=== PATIENT | female | born 1995 ===

== ENCOUNTER 2017-07-10 11:42 | Inpatient (IN) | payer OTHER ==
[2017-07-10] MEDS ORDERED: EPSOM SALT 454 GM TP PRN (12:04)
[2017-07-10] MEDS ORDERED: OLIVE OIL 118 ML BTL MISC PRN (12:04)
[2017-07-10] MEDS ORDERED: OXYTOCIN 20 UNIT in LR 1,000 ML IV PRN (12:04)
[2017-07-10] MEDS ORDERED: TERBUTALINE SULFATE 1 MG/ML VIAL IV PRN (12:04)
[2017-07-10] MEDS ORDERED: MISOPROSTOL 200 MCG TAB PR PRN (12:04)
[2017-07-10] MEDS ORDERED: CALCIUM GLUC 10% 1 GM/10 ML VIAL IVP PRN (12:07)
[2017-07-10] MEDS ORDERED: MAGNESIUM SULF 2 GM/WATER 50 ML IV PRN (12:11)
[2017-07-10] MEDS ORDERED: MAGNESIUM SULF 2 GM/WATER 50 ML IV ONE (12:11)
[2017-07-10] MEDS ORDERED: MAGNESIUM SULF 2 GM/WATER 50 ML BAG IV ONE (12:16)
[2017-07-10] MEDS ORDERED: CALCIUM GLUC 10% 1 GM/10 ML VIAL ONE (12:28)
[2017-07-10] MEDS ORDERED: MAGNESIUM SULFATE 20 GM in D5W 500 ML IV SCH (12:30)
[2017-07-10 13:08] LABS: PLATELET COUNT 324 10^3/uL (150-400)
[2017-07-10] MEDS: LR 1,000 ML IV PRN (13:12)
[2017-07-10] MEDS ORDERED: BETAMETHASONE IM SYRINGE IM ONE (14:23)
[2017-07-10 16:06] LABS: HEPATITIS B SURFACE ANTIGEN NEGATIVE (NEGATIVE)
[2017-07-10 16:15] LABS: HIV TYPE 1 AND 2 NEGATIVE (NEGATIVE)
[2017-07-10 17:57] LABS: PLATELET COUNT 279 10^3/uL (150-400)
[2017-07-10] MEDS ORDERED: LIDOCAINE 1% 300 MG/30 ML SDV ONE (19:29)
[2017-07-10] MEDS ORDERED: TERBUTALINE SULFATE 1 MG/ML VIAL ONE (19:29)
[2017-07-10] MEDS ORDERED: AMMONIA AROMATIC 1 EACH AMP IH ONE (19:29)
[2017-07-10] MEDS ORDERED: OLIVE OIL 118 ML BTL ONE (19:29)
[2017-07-10] MEDS ORDERED: MISOPROSTOL 200 MCG TAB ONE (19:30)
[2017-07-10] MEDS ORDERED: OXYTOCIN 10 UNIT/ML VIAL ONE (19:30)
[2017-07-10] MEDS ORDERED: LR 500 ML IV PRN (21:58)
[2017-07-10] MEDS ORDERED: OXYTOCIN 30 UNIT in NS 500 ML IV SCH (22:00)
[2017-07-10] MEDS ORDERED: ZOLPIDEM TARTRATE 5 MG TAB PO PRN (22:37)
[2017-07-10 22:43] LABS: PLATELET COUNT 307 10^3/uL (150-400)
[2017-07-11] MEDS: NS IV SCH ×2 (00:04→10:30)
[2017-07-11] MEDS: MAGNESIUM SULFATE IV SCH ×2 (00:04→10:30)
[2017-07-11] MEDS ORDERED: ACETAMINOPHEN 500 MG TAB PO PRN (00:21)
[2017-07-11 06:40] LABS: PLATELET COUNT 301 10^3/uL (150-400)
[2017-07-11] MEDS ORDERED: AMPICILLIN SODIUM 2 GM in STERILE WATER INJ 25 ML IV ONE (07:53)
[2017-07-11] MEDS ORDERED: BETAMETHASONE IM SYRINGE IM ONE (07:58)
[2017-07-11] MEDS: LR 1,000 ML IV PRN (08:04)
--- NOTE | 2017-07-11 08:41 | GHP ---
[f rep st] PREOP HISTORY AND PHYSICAL DATE OF ADMISSION: 07/10/2017 This admission history and physical is dictated late. The patient was seen and evaluated on 07/11/19 18 and extensive management throughout the day. HISTORY UPON ADMISSION: The patient is a 21-year-old G1, P0, who was brought by ambulance to Labor a nd Delivery as a walk-in patient with concern for severe hypertension with no care and unkno wn gestational age. The patient is a pleasant, lucid white female who reports she was not aware of t he until last week. The patient reports that she was having some visual changes and weight gain and went to an urgent care center in May and told her test was negative. Patient then re-presented to a general practitioner at [place] on 07/01 complaining of visual changes, swelli ng, and weight gain. At that time, she was told she had a positive test. She was told austen t likely she was between 20 and 22 weeks, and the patient expressed that she did not want to continue the , and she was referred to [facility]. On both of the prior office visits, the patient was asked if she was nervous because her blood pressure was slightly elevated. The dorcas ent did mention she knew her blood type was negative, and she was given a RhoGAM shot on 07/05 at [facility]. On 07/10, the patient presented to the [facility] and was told there that she was very h ypertensive, and it was dangerous to her health, and she was going to be sent to the hospital by ruthie sanz. Clinic notes from that presentation show blood pressure 177/122. Quick ultrasound was perfor med, and the patient was told she was at term gestation. Report from the ambulance personnel was austen t the patient was very hypertensive coming to the hospital. Blood pressure 190/140 and pulse ox of 8 6%. The patient was given IV magnesium sulfate on the transport. The intent was to take the patient to [facility]; however, she was not felt to be stable enough and was brought to [facility]. The patient reports that since the awareness of last week, she has noticed mov ement. Denies leakage of fluid or bleeding. Denies feeling anything like contractions. PAST MEDICAL HISTORY: The patient reports an ulcer that was treated with antibiotics during a high s tress time several years ago. Does not have regular GI discomfort or take antacids. The patient den ies any other medical problems. Denies asthma or any heart trouble. No migraine headaches or histor y of hypertension. PAST SURGICAL HISTORY: Negative. PAST OBSTETRIC HISTORY: Negative. 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 Patient denies any history of gonorrhea or chlamydia. ALLERGIES: The patient has no known drug allergies. CURRENT MEDICATIONS: None. SOCIAL HISTORY: The patient denies any illicit drug use. Patient has never been a smoker. Denies a ny pot use. 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 Patient reports her family is unaware of this h ospital visit and the . Patient reports last week she informed the father of the child, who is in [place], of the . They are currently no longer together. However, he gave her sup port that he would support any decision she made about the . The patient moved approximatel y a year and half ago from [place], and with her job was in [place] for approximately the last 6 weeks and just returned 2 weeks ago. DIAGNOSTIC DATA: Laboratory tests done upon admission confirm the blood type of O negative with a po sitive antibody screen, felt to be due to the RhoGAM given on 07/05. Initial laboratory tests reveal white count of 6.8, hemoglobin 13, hematocrit 39, platelets 324,000. Initial PIH labs reveal BUN of 12, creatinine 1.0, uric acid of 7.5, AST 30, ALT 37, LDH 665. labs were performed and RPR nonreactive. Hepatitis B surface antigen was negative. HIV negative. Rubella is nonimmune. An ultrasound was performed, which reveals a westfall in the vertex presentation. There i s adequate amniotic fluid. Placental location is fundal. Symmetric sizes with an average ultrasound age of 36 weeks and 6 days with a femur length of 38 weeks and 6 days. Estimated weight 2933 g. Mu ltiple areas of the anatomy were suboptimal due to position. Cardiac evaluation appears normal. REVIEW OF SYSTEMS: Patient reports generalized visual changes and reports blurriness when in differe nt light situations. Has reported swelling for the last 2 weeks and generalized weight gain. Patien t denies headaches. Denies any epigastric or right upper quadrant pain. Denies any nausea or vomiti ng. Denies any chest pain. Denies any vaginal discharge or bleeding. No trouble with urination. ADMISSION PHYSICAL EXAM: GENERAL: The patient is a well-developed, well-nourished white female, in no physical signs of distress upon admission. The patient is alert and oriented. VITAL SIGNS: Init ially revealed a blood pressure of 147/102 with a heart rate 88. Pulse ox evaluations were in the 90 s on 2-3 L of O2 upon admission. This was reduced to 1 L of O2, and pulse ox remained stable in the 90s. Blood pressures continued on close evaluation to be in the 130s to 160s over 90s to 100s. See nursing documentation for full details. LUNGS: Clear to auscultation bilaterally. CARDIOVASCULAR: Regular rate and rhythm. ABDOMEN: Gravid uterus. monitoring revealed a category 1 tracing w ith the baseline in the 120s with good variability and accelerations. No sign of decelerations. Con traction pattern only revealed very infrequent mild contractions. EXTREMITIES: Revealed 3+ pitting edema up to the knees. However, this decreased as the patient was at bed rest. Reflexes were hyperr eflexive. PELVIS: Exam was done later in the day, and the cervix was 1 cm dilated, 70% effaced, at 0 station. For cervical ripening with the thought of proceeding with induction, a García catheter was placed. The cervix was wiped clean with Betadine, and the García catheter was inserted to the cervix without any problems. It was filled with 30 mL of sterile water. The patient tolerated the placeme nt without any trouble. ASSESSMENT: 21-year-old with no care with an intrauterine at 36 weeks and 6 days by late dating criteria of ultrasound today. Undesired , and the patient is unsure but lean ing towards giving the baby up for adoption. Signs of severe -induced hypertension with hyp erreflexia. Blood pressures in stable range on magnesium sulfate. The patient had received a gram o f magnesium en route in the ambulance and was given an additional 2 g bolus upon admission. She is t hen continued on a 2 g/hour infusion of magnesium sulfate. Serial labs throughout the day on 07/10 reveal stability of platelet levels and normal liver function s. Creatinine is showing slow elevation up to 1.1. Continued high uric acid throughout the day. Ad equate urine output, greater than 70 cc an hour with spontaneous voiding at the bedside commode. Due to unsure gestation with late dating criteria, it was decided to give the patient a betamethasone do se and will repeat in 24 hours if undelivered. Also, due to unknown GBS status, the patient will rec eive antibiotics when in labor. Situation was discussed with the patient, and she understands that due to the hypertension, it is rec ommended to proceed with delivery. The García catheter was inserted for cervical ripening, and the pl an will be Pitocin to start on the morning of 07/11. Maternal blood type O negative, and RhoGAM was given after a negative antibody screen was obtained on 07/05. PLAN: Continue magnesium sulfate and fluid restriction and repeat labs at [address] arted at 6 a.m. as well as antibiotics for GBS prophylaxis. /[id number]/MODL
[2017-07-11] MEDS ORDERED: PHENYLEPHRINE HCL 100 MCG/ML SYR ONE (14:15)
[2017-07-11] MEDS ORDERED: BUPIVACAINE 0.25% 30 ML SDV ONE (14:15)
[2017-07-11] MEDS ORDERED: fentaNYL 100 MCG/2 ML INJ ONE (14:17)
[2017-07-11] MEDS ORDERED: LR 500 ML IV SCH (15:30)
[2017-07-11] MEDS ORDERED: PHENYLEPHRINE HCL 100 MCG/ML SYR IVP PRN (15:30)
[2017-07-11] MEDS ORDERED: ONDANSETRON 4 MG/2 ML VIAL IVP PRN (15:30)
[2017-07-11] MEDS ORDERED: fentaNYL 2MCG/ML/BUP 0.1% RTU 100 ML EP SCH (15:30)
--- NOTE | 2017-07-11 15:40 | OBPROG ---
Labor Progress Note Assessment/Plan: Assessment: [id number] with IUP@37-0 (by 36wk US) Pre Eclampsia no PNC IOL BUFA Plan: cont magnesium sulfate cont pitocin AROM at next exam reassess 2hr/PRN repeat mag levels @ 12 Cont strict I&O Subjective/Intrapartum Course: 07/11/17 0820: pt doing well, she denies any pain. She is laying in bed. States she is feeling tired, more than yesterday, but overall ok. She denies any CUMMINS, visual changes, epigastric pain. She denies any CP, SOB. Objective: 07/11/17 06:00 07/11/17 13:59 Patient ABO/Rh O NEGATIVE 07/10/17 11:57 Uric Acid 8.2 mg/dL (2.5-6.8) H 07/11/17 12:36 Total Bilirubin 0.2 mg/dL (0.1-1.4) 07/11/17 06:00 Conjugated Bilirubin 0.1 mg/dL (0.0-0.5) 07/11/17 06:00 Unconjugated Bilirubin 0.1 mg/dL (0.0-1.1) 07/11/17 06:00 AST 27 IU/L (14-46) 07/11/17 06:00 ALT 31 IU/L (9-52) 07/11/17 06:00 Lactate Dehydrogenase 481 IU/L (313-618) 07/11/17 06:00 García bulb out - SVE Dilation (cm): 4 Effacement (%): 0 Station: -3 - Contraction Pattern Assessment Current Contraction Pattern: Irregular - FHR Assessment López FHR (bpm): 115 FHR Pattern Variability: Minimal FHR Category: 1 - Physical Exam General Appearance: WD/WN, alert, no apparent distress Respiratory: chest non-tender, lungs clear, normal breath sounds Cardiac/Chest: regular rate, rhythm Abdomen: non-tender, soft DTR- Lower Extremities: Knee (R): 1+, Knee (L): 1+ Skin: normal color, warm/dry Neuro/Psych: no motor/sensory deficits, alert, normal mood/affect, oriented x 3 Oxytocin Orders Assessment - Pre-Induction/Augmentation Assessment Gestational Age: 36 week(s) and 6 day(s) ICD10 Worksheet Patient Problems: Problems Problem Status Onset Limited care in third trimester Acute Pre-eclampsia Acute with adoption planned Acute - ICD10 Problem Qualifiers (1) Pre-eclampsia Qualifiers: Trimester: third trimester Qualified Code(s): O14.93 - Unspecified pre- eclampsia, third trimester (2) Limited care in third trimester (3) with adoption planned Qualifiers: Trimester: third trimester Qualified Code(s): Z34.93 - Encounter for supervision of normal , unspecified, third trimester
[2017-07-11] MEDS ORDERED: fentaNYL 200 MCG, BUPIVACAINE 0.5% 20 ML in NS 100 ML EP SCH (16:00)
--- NOTE | 2017-07-11 17:54 | PREANESOB ---
Obstetric Pre-Anesthesia Info - General Info Proposed Procedure: Labor and delivery with pitocin. : 1 Para: 0 HUMBERTO: 08/01/17 Gestational Age: 36 week(s) and 6 day(s) - Info Status: Full Term Monitors: External FHR Baseline (bpm): 115 FHR Pattern: Reassuring - Labor Status Cervical Dilation per last OB SVE: 4 Pitocin: In Use Magnesium Sulfate in Use: Yes Indications for Labor Analgesia: Induction of Labor, Pain Control Labor Epidural: Proposed (Preeclampsia.) Anesthesia Allergies/Adverse Reactions: Allergy/AdvReac Type Severity Reaction Status Date / Time No Known Allergies Allergy Unverified 07/10/17 12:03 Home Medications: Medication Instructions Recorded NK [No Known Home Meds] 07/10/17 Visit Medications: Generic Name Dose Route Start Last Admin Trade Name Freq PRN Reason Stop Dose Admin Acetaminophen 1,000 mg 07/11/17 00:21 07/11/17 00:25 Tylenol PO 01/07/18 00:20 1,000 mg Q6 PRN Administration Pain, Mild/Fever, Can Take PO Calcium Gluconate 1 gm 07/10/17 12:07 Calcium Gluconate IVP 01/06/18 12:06 PRN PRN Magnesium Toxicity Diphenhydramine HCl 25 - 50 mg 07/11/17 15:30 Benadryl Injection IVP 01/07/18 15:29 Q6HRS PRN Itching Oxytocin 20 unit/ Lactated 1,002 mls @ 150 mls/hr 07/10/17 12:04 Ringer's IV PRN PRN Post- bleeding Magnesium Sulfate 50 mls @ 50 mls/hr 07/10/17 12:11 Magnesium Sulf 2 Gm (Premix) IV 01/06/18 12:10 CONT PRN SBP Greater Than 160 Lactated Ringer's 500 mls @ 500 mls/hr 07/10/17 21:58 Lr IV 07/11/17 21:58 PRN PRN Maternal Hypotension Oxytocin 30 unit/ Sodium 503 mls @ 0 mls/hr 07/10/17 22:00 07/11/17 06:02 Chloride IV 01/06/18 21:59 503 mls CONT EDVIN Administration Protocol Per Protocol Magnesium Sulfate 20 gm/ 540 mls @ 50 mls/hr 07/10/17 23:00 07/11/17 10:30 Sodium Chloride IV 01/06/18 22:59 540 mls CONT EDVIN Administration Ampicillin Sodium 1 gm/ 15 mls @ 60 mls/hr 07/11/17 08:15 Sterile Water IV 08/10/17 08:14 Q4H [facility] Protocol Lactated Ringer's 500 mls @ 0 mls/hr 07/11/17 15:30 Lr IV 01/07/18 15:29 CONT EDVIN As Directed Fentanyl 200 mcg/ Bupivacaine 100 mls @ 0 mls/hr 07/11/17 16:00 HCl 20 ml/ Sodium Chloride EP 07/21/17 15:59 CONT [facility] Protocol As Directed Ibuprofen 600 mg 07/10/17 12:04 Motrin PO 01/06/18 12:03 Q6HRS PRN post , inflammation Magnesium Sulfate 454 gm 07/10/17 12:04 Epsom Salt TP 01/06/18 12:03 Q1H PRN perineal discomfort Misoprostol 800 - 1,000 mcg 07/10/17 12:04 Cytotec OR ONCE PRN Vaginal Atony/Bleeding Ilion Oil 118 ml 07/10/17 12:04 Sweet Oil MISC 01/06/18 12:03 ONCE PRN perineal massage Ondansetron HCl 4 mg 07/11/17 15:30 Zofran IVP 07/12/17 15:29 Q4HRS PRN Nausea/Vomiting, Can't Take PO Phenylephrine HCl 100 mcg 07/11/17 15:30 Neosynephrine IVP 01/07/18 15:29 .Q2M PRN Hypotension Terbutaline Sulfate 0.25 mg 07/10/17 12:04 Brethine IV 01/06/18 12:03 ONCE PRN Tachysystole Zolpidem Tartrate 5 mg 07/10/17 22:37 07/11/17 00:03 Ambien PO 01/06/18 22:36 5 mg HS PRN Administration Sleep/Insomnia Discontinued Medications Generic Name Dose Route Start Last Admin Trade Name Freq PRN Reason Stop Dose Admin Ammonia (Aromatic Spirit) Confirm 07/10/17 19:29 Ammonia Aromatic Administered 07/10/17 19:30 Dose 1 each IH .STK-MED ONE Betamethasone Acet/Betameth SodPhos 12 mg 07/10/17 14:23 07/10/17 15:36 Celestone Im Syringe IM 07/10/17 14:24 12 mg ONCE ONE Administration Betamethasone Acet/Betameth SodPhos 12 mg 07/11/17 07:58 07/11/17 08:25 Celestone Im Syringe IM 07/11/17 07:59 12 mg ONCE ONE Administration Bupivacaine HCl Confirm 07/11/17 14:15 Sensorcaine 0.25% Sdv Administered 07/11/17 14:16 Dose 30 ml .ROUTE .STK-MED ONE Calcium Gluconate Confirm 07/10/17 12:28 Calcium Gluconate Administered 07/10/17 12:29 Dose 1 gm .ROUTE .STK-MED ONE Fentanyl Confirm 07/11/17 14:17 Sublimaze Administered 07/11/17 14:18 Dose 100 mcg .ROUTE .STK-MED ONE Lactated Ringer's 1,000 mls @ 0 mls/hr 07/10/17 12:04 07/11/17 08:04 Lr IV 07/11/17 12:03 1,000 mls PRN PRN Administration SEE PROTOCOL CONDITIONS Protocol Per Protocol Magnesium Sulfate 20 gm/ 540 mls @ 50 mls/hr 07/10/17 12:30 07/10/17 13:13 Dextrose IV 01/06/18 12:29 540 mls CONT EDVIN Administration Magnesium Sulfate 50 mls @ 50 mls/hr 07/10/17 12:11 07/10/17 13:13 Magnesium Sulf 2 Gm (Premix) IV 07/10/17 13:10 50 mls ONCE ONE Administration Ampicillin Sodium 2 gm/ 25 mls @ 100 mls/hr 07/11/17 07:53 07/11/17 14:29 Sterile Water IV 07/11/17 08:07 25 mls ONCE ONE Administration Protocol Lidocaine HCl Confirm 07/10/17 19:29 Lidocaine Hcl 1% Administered 07/10/17 19:30 Dose 300 mg .ROUTE .STK-MED ONE Magnesium Sulfate Confirm 07/10/17 12:16 Magnesium Sulf 2 Gm (Premix) Administered 07/10/17 12:17 Dose 2 gm IV .STK-MED ONE Misoprostol Confirm 07/10/17 19:30 Cytotec Administered 07/10/17 19:31 Dose 1,000 mcg .ROUTE .STK-MED ONE Ilion Oil Confirm 07/10/17 19:29 Sweet Oil Administered 07/10/17 19:30 Dose 118 ml .ROUTE .STK-MED ONE Oxytocin Confirm 07/10/17 19:30 Pitocin Administered 07/10/17 19:31 Dose 40 unit .ROUTE .STK-MED ONE Phenylephrine HCl Confirm 07/11/17 14:15 Neosynephrine Administered 07/11/17 14:16 Dose 1,000 mcg .ROUTE .STK-MED ONE Terbutaline Sulfate Confirm 07/10/17 19:29 Brethine Administered 07/10/17 19:30 Dose 1 mg .ROUTE .STK-MED ONE - Anesthesia History Response to Local Anesthetics: Normal Anesthesia & Operative History: No Prior Problems Family Anesthesia History: Negative - Social History Substance Use/Abuse: Denies - Vital Signs Blood Pressure: 126/77 Heart Rate: 83 Respiratory Rate: 16 Height/Weight (Nursing): Height 175.26 cm Weight 72.575 kg - Focused Exam Neck exam: FROM Mallampati Score: Class 1 Mouth exam: normal dental/mouth exam Pulmonary: no respiratory distress Cardiovascular: regular rate and rhythym Labs: 07/11/17 06:00 07/11/17 13:59 Patient ABO/Rh O NEGATIVE 07/10/17 11:57 Uric Acid 8.2 mg/dL (2.5-6.8) H 07/11/17 12:36 Total Bilirubin 0.2 mg/dL (0.1-1.4) 07/11/17 06:00 Conjugated Bilirubin 0.1 mg/dL (0.0-0.5) 07/11/17 06:00 Unconjugated Bilirubin 0.1 mg/dL (0.0-1.1) 07/11/17 06:00 AST 27 IU/L (14-46) 07/11/17 06:00 ALT 31 IU/L (9-52) 07/11/17 06:00 Lactate Dehydrogenase 481 IU/L (313-618) 07/11/17 06:00 - Plan Consent Signed and on Chart: Yes Patient/Guardian Understands and Agrees to Plan: Yes
--- NOTE | 2017-07-11 17:56 | POSTANESTH ---
Post Anesthetic Evaluation Cardiovascular Status: Normal, Stable, Similar to Pre-Op Cond Respiratory Status: Similar to Pre-op Cond. Level of Consciousness/Mental Status: Can Participate in Eval, Alert and Oriented (BP stable after phenylephrine.) Pain Control: Adequate, Prn Tx Ordered Nausea/Vomiting Control: Adequate, Prn Tx Ordered Complications Possibly Related to Anesthesia: None Noted
[2017-07-11 19:07] LABS: PLATELET COUNT 324 10^3/uL (150-400)
[2017-07-11] MEDS: AMPICILLIN SODIUM 1 GM in STERILE WATER INJ 15 ML IV SCH (19:26)
--- NOTE | 2017-07-11 20:13 | OBPROG ---
Labor Progress Note Assessment/Plan: Assessment: [id number] with IUP@37-0 (by 36wk US) Pre Eclampsia no PNC IOL BUFA AROM- clear Plan: cont magnesium sulfate cont pitocin reassess 2hr/PRN mag levels pending Cont strict I&O Subjective/Intrapartum Course: 07/11/17 0820: pt doing well, she denies any pain. She is laying in bed. States she is feeling tired, more than yesterday, but overall ok. She denies any CUMMINS, visual changes, epigastric pain. She denies any CP, SOB. 07/11/17 1335: pt doing well, she is agreeable to AROM. She denies any pain or LOF. She reports feeling ok- still tired. She denies any CUMMINS, visual changes, epigastric pain. She denies any CP, SOB. Objective: 07/11/17 18:11 07/11/17 18:11 Patient ABO/Rh O NEGATIVE 07/10/17 11:57 Uric Acid 8.5 mg/dL (2.5-6.8) H 07/11/17 18:11 Total Bilirubin 0.2 mg/dL (0.1-1.4) 07/11/17 18:11 Conjugated Bilirubin 0.1 mg/dL (0.0-0.5) 07/11/17 18:11 Unconjugated Bilirubin 0.1 mg/dL (0.0-1.1) 07/11/17 18:11 AST 33 IU/L (14-46) 07/11/17 18:11 ALT 34 IU/L (9-52) 07/11/17 18:11 Lactate Dehydrogenase 564 IU/L (313-618) 07/11/17 18:11 Temp Pulse Resp BP Pulse Ox 83 16 126/77 H 07/11/17 17:55 07/11/17 17:55 07/11/17 17:55 - SVE Dilation (cm): 4 Effacement (%): 50 Station: -2 Membranes: AROM Amniotic Fluid Color: Clear - Contraction Pattern Assessment Current Contraction Pattern: Irregular - Procedures Non-surgical Procedures: Amniotomy Oxytocin Orders Assessment - Pre-Induction/Augmentation Assessment Gestational Age: 36 week(s) and 6 day(s) ICD10 Worksheet Patient Problems: Problems Problem Status Onset Limited care in third trimester Acute Pre-eclampsia Acute with adoption planned Acute - ICD10 Problem Qualifiers (1) Pre-eclampsia Qualifiers: Trimester: third trimester Qualified Code(s): O14.93 - Unspecified pre- eclampsia, third trimester (2) Limited care in third trimester (3) with adoption planned Qualifiers: Trimester: third trimester Qualified Code(s): Z34.93 - Encounter for supervision of normal , unspecified, third trimester
--- NOTE | 2017-07-11 20:17 | OBPROG ---
Labor Progress Note Assessment/Plan: Assessment: [id number] with IUP@37-0 (by 36wk US) Pre Eclampsia- on Magnesium sulfate no PNC IOL- pitocin BUFA AROM- clear Elevated Magnesium levels Low urine output (<30mL/hr) Plan: stop magnesium sulfate cont pitocin consulted with Dr Blanchard- heaven mag, Cr levels pending, will consult with MFClara Cont strict I&O Subjective/Intrapartum Course: 07/11/17 0820: pt doing well, she denies any pain. She is laying in bed. States she is feeling tired, more than yesterday, but overall ok. She denies any CUMMINS, visual changes, epigastric pain. She denies any CP, SOB. 07/11/17 1335: pt doing well, she is agreeable to AROM. She denies any pain or LOF. She reports feeling ok- still tired. She denies any CUMMINS, visual changes, epigastric pain. She denies any CP, SOB. Objective: 07/11/17 18:11 07/11/17 18:11 Patient ABO/Rh O NEGATIVE 07/10/17 11:57 Uric Acid 8.5 mg/dL (2.5-6.8) H 07/11/17 18:11 Total Bilirubin 0.2 mg/dL (0.1-1.4) 07/11/17 18:11 Conjugated Bilirubin 0.1 mg/dL (0.0-0.5) 07/11/17 18:11 Unconjugated Bilirubin 0.1 mg/dL (0.0-1.1) 07/11/17 18:11 AST 33 IU/L (14-46) 07/11/17 18:11 ALT 34 IU/L (9-52) 07/11/17 18:11 Lactate Dehydrogenase 564 IU/L (313-618) 07/11/17 18:11 Temp Pulse Resp BP Pulse Ox 83 16 126/77 H 07/11/17 17:55 07/11/17 17:55 07/11/17 17:55 Magnesium levels 9 - SVE Membranes: AROM Amniotic Fluid Color: Clear - Contraction Pattern Assessment Current Contraction Pattern: Irregular - FHR Assessment López FHR (bpm): 110 (late decelerations noted (2/2 low BP), corrected with Neosynpherine) FHR Pattern Variability: Minimal FHR Category: 2 - Procedures Non-surgical Procedures: Amniotomy Oxytocin Orders Assessment - Pre-Induction/Augmentation Assessment Gestational Age: 36 week(s) and 6 day(s) ICD10 Worksheet Patient Problems: Problems Problem Status Onset Limited care in third trimester Acute Pre-eclampsia Acute with adoption planned Acute - ICD10 Problem Qualifiers (1) Pre-eclampsia Qualifiers: Trimester: third trimester Qualified Code(s): O14.93 - Unspecified pre- eclampsia, third trimester (2) Limited care in third trimester (3) with adoption planned Qualifiers: Trimester: third trimester Qualified Code(s): Z34.93 - Encounter for supervision of normal , unspecified, third trimester
[2017-07-11] MEDS ORDERED: HYDROCODONE/APAP 5/325 TAB PO PRN (21:23)
[2017-07-11] MEDS ORDERED: HYDROCORTISONE 0.5% CREAM TP PRN (21:23)
[2017-07-11] MEDS ORDERED: SIMETHICONE 80 MG TAB CHEW PO PRN (21:23)
[2017-07-11] MEDS ORDERED: ACETAMINOPHEN 325 MG TAB PO PRN (21:23)
--- NOTE | 2017-07-11 21:30 | OBDEL ---
Info Type: Vaginal Presentation at Delivery: Vertex L&D Analgesia/Anesthesia Type: Epidural GBS+: No Intrapartum Medications: Generic Name Dose Route Start Last Admin Trade Name Juan PRN Reason Stop Dose Admin Acetaminophen 1,000 mg 07/11/17 00:21 07/11/17 00:25 Tylenol PO 01/07/18 00:20 1,000 mg Q6 PRN Administration Pain, Mild/Fever, Can Take PO Oxytocin 30 unit/ Sodium 503 mls @ 0 mls/hr 07/10/17 22:00 07/11/17 06:02 Chloride IV 01/06/18 21:59 503 mls CONT EDVIN Administration Protocol Per Protocol Magnesium Sulfate 20 gm/ 540 mls @ 50 mls/hr 07/10/17 23:00 07/11/17 10:30 Sodium Chloride IV 01/06/18 22:59 540 mls CONT EDVIN Administration Fentanyl 200 mcg/ Bupivacaine 100 mls @ 0 mls/hr 07/11/17 16:00 07/11/17 20: 32 HCl 20 ml/ Sodium Chloride EP 07/21/17 15:59 100 mls CONT EDVIN Administration Protocol As Directed Ampicillin Sodium 1 gm/ 15 mls @ 60 mls/hr 07/11/17 19:00 07/11/17 19:26 Sterile Water IV 08/10/17 18:59 15 mls Q4H EDVIN Administration Protocol Zolpidem Tartrate 5 mg 07/10/17 22:37 07/11/17 00:03 Ambien PO 01/06/18 22:36 5 mg HS PRN Administration Sleep/Insomnia Discontinued Medications Generic Name Dose Route Start Last Admin Trade Name Juan PRN Reason Stop Dose Admin Betamethasone Acet/Betameth SodPhos 12 mg 07/10/17 14:23 07/10/17 15:36 Celestone Im Syringe IM 07/10/17 14:24 12 mg ONCE ONE Administration Betamethasone Acet/Betameth SodPhos 12 mg 07/11/17 07:58 07/11/17 08:25 Celestone Im Syringe IM 07/11/17 07:59 12 mg ONCE ONE Administration Lactated Ringer's 1,000 mls @ 0 mls/hr 07/10/17 12:04 07/11/17 08:04 Lr IV 07/11/17 12:03 1,000 mls PRN PRN Administration SEE PROTOCOL CONDITIONS Protocol Per Protocol Magnesium Sulfate 20 gm/ 540 mls @ 50 mls/hr 07/10/17 12:30 07/10/17 13:13 Dextrose IV 01/06/18 12:29 540 mls CONT EDVIN Administration Magnesium Sulfate 50 mls @ 50 mls/hr 07/10/17 12:11 07/10/17 13:13 Magnesium Sulf 2 Gm (Premix) IV 07/10/17 13:10 50 mls ONCE ONE Administration Ampicillin Sodium 2 gm/ 25 mls @ 100 mls/hr 07/11/17 07:53 07/11/17 14:29 Sterile Water IV 07/11/17 08:07 25 mls ONCE ONE Administration Protocol - Infant Care Provider Penal Officer/COMMERCIAL CREDIT SPECIALIST: Brandon Vargas - Hospital Course Intrapartum: 07/11/17 0820: pt doing well, she denies any pain. She is laying in bed. States she is feeling tired, more than yesterday, but overall ok. She denies any CUMMINS, visual changes, epigastric pain. She denies any CP, SOB. 07/11/17 1335: pt doing well, she is agreeable to AROM. She denies any pain or LOF. She reports feeling ok- still tired. She denies any CUMMINS, visual changes, epigastric pain. She denies any CP, SOB. Indications for Delivery: Preeclampsia Severe Vaginal Delivery - Delivery Provider Delivery Physician/CNM: Bobbi Asher - Labor and Delivery Onset of Contractions Date: 07/11/17 Onset of Contractions Time: 13:33 Onset of Contractions Type: Induced Rupture of Membranes Date: 07/11/17 Rupture of Membranes Time: 13:33 Rupture of Membranes Type: Artificial Amniotic Fluid Color: Clear Dilation Complete Date: 07/11/17 Dilation Complete Time: 20:32 Placenta Delivery Date: 07/11/17 Placenta Delivery Time: 20:59 Total Hours of Labor: 7 Non-surgical Procedures: Amniotomy, FSE Laceration: 1st Degree Repair: 3-0, Vicryl Vaginal Sponge Count Correct: Yes Vaginal Needle Count Correct: Yes Vaginal Sweep Performed: Yes Delivery Comment: delivered with difficulty. compound right arm, nuchal- delivered through. baby doing great. +bonding [place] Data HUMBERTO: 08/01/17 Gestational Age: 37 week(s) and 0 day(s) López Delivery Date: 07/11/17 Delivery Time: 20:49 Sex of : Male Score (1 Min): 9 Score (5 Min): 10 ICD10 Worksheet Patient Problems: Problems Problem Status Onset Limited care in third trimester Acute Pre-eclampsia Acute with adoption planned Acute - ICD10 Problem Qualifiers (1) Pre-eclampsia Qualifiers: Trimester: third trimester Qualified Code(s): O14.93 - Unspecified pre- eclampsia, third trimester (2) Limited care in third trimester (3) with adoption planned Qualifiers: Trimester: third trimester Qualified Code(s): Z34.93 - Encounter for supervision of normal , unspecified, third trimester
[2017-07-11] MEDS: IBUPROFEN 600 MG TAB PO PRN (21:32)
[2017-07-11] MEDS ORDERED: LABETALOL HCL 5 MG/ML 20 ML MDV IVP ONE (21:48)
[2017-07-12] MEDS: AMPICILLIN SODIUM 1 GM in STERILE WATER INJ 15 ML IV SCH ×6 (00:01→17:28)
[2017-07-12 00:38] LABS: PLATELET COUNT 311 10^3/uL (150-400)
[2017-07-12 02:33] LABS: PLATELET COUNT 300 10^3/uL (150-400)
[2017-07-12 06:53] LABS: PLATELET COUNT 287 10^3/uL (150-400)
[2017-07-12] MEDS: IBUPROFEN 600 MG TAB PO PRN ×2 (11:07→20:13)
[2017-07-12] MEDS: MAGNESIUM SULFATE IV SCH (11:24)
[2017-07-12] MEDS: NS IV SCH (11:24)
--- NOTE | 2017-07-12 13:39 | OBPP ---
Progress Note Assessment/Plan: Assessment: 21 y/o PPD #1 s/p IOL secondary to severe pre-eclampsia on MgSo4 Plan: Labs are stable this am, but creatinine remains elevated. Will re check today at 14:00 and watch the trend. Will continue MgSo4 until tonight @ 20:30 24 hours post . We will continue to observe her BP and treat if they remain elevated. 07/12/17 14:02 Subjective/ Course: 07/12/17 14:00 Pt is feeling much better today after delivery. She has mild cramping and min lochia. She denies CUMMINS, scotomata or RUQ pain. She is less tired and overall feels good. Objective: 07/12/17 06:30 07/12/17 06:30 Patient ABO/Rh O NEGATIVE 07/10/17 11:57 Uric Acid 9.2 mg/dL (2.5-6.8) H 07/12/17 06:30 Total Bilirubin 0.1 mg/dL (0.1-1.4) 07/12/17 06:30 Conjugated Bilirubin 0.1 mg/dL (0.0-0.5) 07/12/17 06:30 Unconjugated Bilirubin 0.0 mg/dL (0.0-1.1) 07/12/17 06:30 AST 42 IU/L (14-46) 07/12/17 06:30 ALT 37 IU/L (9-52) 07/12/17 06:30 Lactate Dehydrogenase 710 IU/L (313-618) H 07/12/17 06:30 Temp Pulse Resp BP Pulse Ox 36.4 C 60 16 128/72 H 95 07/12/17 06:30 07/12/17 06:30 07/12/17 06:30 07/12/17 06:30 07/12/17 06:30 BP ranging 110-160/70-100, mostly 130/80's Uterine Position/Fundal Height: Umbilicus -2 Uterine Tone: Firm Physical Exam - Physical Exam General Appearance: alert, no apparent distress Neck: non-tender, full range of motion, supple Respiratory: chest non-tender, lungs clear, normal breath sounds Cardiac/Chest: regular rate, rhythm Abdomen: normal bowel sounds Extremities: swelling (no), Rusty's sign (neg)
[2017-07-12 14:54] LABS: PLATELET COUNT 274 10^3/uL (150-400)
--- NOTE | 2017-07-12 17:48 | ASMTCMCOM ---
CM Note CM Note Notes: SW consult requested for MOC who wishes to give her baby up for adoption. Per H&P, pt was unaware she was until June. Met with MOC to discuss her decision and the adoption process. MO stated she has discussed this with [facility], who is currently in [place] doing disaster relief work. She states he is in agreement. MO also states she has discussed this with her family who also agree with her decision. MOC states her age and lack of financial resources as her main reasons. Discussed with MO that SW is her advocate and she can talk with her about any issues that arise and she is also free to change her mind at any time until adoption finalized. Went over a list of adoption agencies with [facility]. She had no preference. First two agencies called, [facility] and [facility] both did not answer, the third one, [facility], had the nursing home social worker champion of sustainable design, Kaylene call this SW. Kaylene took down [facility]'s name and ph number and will call her within the hour and arrange a visit for tonight if possible. [facility] asked for a notebook to write down questions. Gave MOC an idea of the questions adoption agency will ask. Gave [facility] SW ph # and assured that SW will be available throughout the weekend to assist her with any concerns about the process. SW will continue to follow. Date Signed: 07/12/2017 05:47 PM Electronically Signed By:Katty Garcia LCSW
[2017-07-12] MEDS: LABETALOL HCL 200 MG TAB PO SCH (21:23)
[2017-07-13] MEDS: IBUPROFEN 600 MG TAB PO PRN ×4 (03:04→21:00)
[2017-07-13 06:33] LABS: PLATELET COUNT 202 10^3/uL (150-400)
[2017-07-13] MEDS: LABETALOL HCL 200 MG TAB PO SCH (08:53)
[2017-07-13] MEDS: DOCUSATE SODIUM 100 MG CAP PO PRN ×2 (08:55→21:01)
--- NOTE | 2017-07-13 11:04 | OBPP ---
Progress Note Assessment/Plan: Assessment: 1) s/p PPD # 2 - pt is stable 2) IOL secondary to severe preeclampsia 3) Anemia - pt is asymptomatic Plan: Continue routine pp care s/p MgSO4, BPs labile 120/80's - 150/90's Currently on Labatelol 200 mg BID, will cont to monitor BPs Pt is asymptomatic Cr improving, diuresing well; Will check labs in am 3/11 Social work in this am 07/13/17 11:00 Subjective/ Course: 07/12/17 14:00 Pt is feeling much better today after delivery. She has mild cramping and min lochia. She denies CUMMINS, scotomata or RUQ pain. She is less tired and overall feels good. 07/13/17 11:04 Pt seen and examined. Doing well with no complaints. Denies any pain or cramping. Mod lochia. Denies any HAs, visual changes or RUQ pain. Denies any f/c /n/v. She is concerned with her BPs. Voiding without difficulty and passing flatus. Objective: 07/13/17 06:10 07/13/17 06:10 Patient ABO/Rh O NEGATIVE 07/10/17 11:57 Uric Acid 8.1 mg/dL (2.5-6.8) H 07/13/17 06:10 Total Bilirubin < 0.1 mg/dL (0.1-1.4) L 07/13/17 06:10 Conjugated Bilirubin 0.1 mg/dL (0.0-0.5) 07/13/17 06:10 Unconjugated Bilirubin 0.0 mg/dL (0.0-1.1) 07/13/17 06:10 AST 38 IU/L (14-46) 07/13/17 06:10 ALT 37 IU/L (9-52) 07/13/17 06:10 Lactate Dehydrogenase 750 IU/L (313-618) H 07/13/17 06:10 Temp Pulse Resp BP Pulse Ox 36.6 C 64 17 154/95 H 95 07/13/17 08:30 07/13/17 08:30 07/13/17 08:30 07/13/17 08:53 07/13/17 08:30 Uterine Position/Fundal Height: Umbilicus -2 Uterine Tone: Firm Physical Exam - Physical Exam Respiratory: lungs clear, normal breath sounds Cardiac/Chest: regular rate, rhythm Abdomen: normal bowel sounds, non-tender, soft, flatus (+) Extremities: non-tender, normal inspection DTR- Lower Extremities: Plantar (R): 1+, Plantar (L): 1+ Skin: normal color, warm/dry Neuro/Psych: alert, normal mood/affect, oriented x 3
[2017-07-13] MEDS: NIFEdipine 10 MG CAP PO SCH (12:45)
[2017-07-13] MEDS: IRON POLYSAC/IRON HEME 28 MG TAB PO SCH ×2 (12:45→21:00)
--- NOTE | 2017-07-13 16:32 | ASMTCMCOM ---
CM Note CM Note Notes: [facility] met with Lavonne from [facility] today ([phone].) ROMAIN is still planning on an adoption. She stated she had a nice connection with Lavonne. Discussed ROMAIN's family with her and their response to her plans. ROMAIN's parents, older sister and twin sister all live in [place] and are familiar with her plans. ROMAIN and [facility] both work for [employer] and travel a lot. ROMAIN states she wants to stay with [facility] but does not feel either of them are ready to raise a child at their young age. ROMAIN states she has roommates where she lives in [place] and gets support from them. She also made an apt with a mental health counselor because she knows she will need to talk about her decision with someone. [facility] plans are to visit with [facility] tomorrow and bring paperwork to be signed and placed in chart. When infant is ready for DC, he will be placed in cradle care until adoption finalized. SW will continue to follow. Date Signed: 07/13/2017 04:31 PM Electronically Signed By:Katty Garcia LCSW
[2017-07-14 00:49] VITALS: RESP 16
[2017-07-14] MEDS: IBUPROFEN 600 MG TAB PO PRN ×2 (04:00→09:53)
[2017-07-14 06:17] LABS: PLATELET COUNT 234 10^3/uL (150-400)
[2017-07-14] MEDS: DOCUSATE SODIUM 100 MG CAP PO PRN (08:29)
[2017-07-14] MEDS: NIFEdipine 10 MG CAP PO SCH (08:29)
[2017-07-14] MEDS: IRON POLYSAC/IRON HEME 28 MG TAB PO SCH (08:29)
[2017-07-14 08:45] VITALS: TEMP 98.3
[2017-07-14 13:41] VITALS: BP 156/96; PULSE 92; O2SAT 95
--- NOTE | 2017-07-14 14:59 | OBPP ---
Progress Note Assessment/Plan: Assessment: 21 y/o PPD #3 s/p IOL secondary to severe pre-eclampsia on MgSo4 Plan: D/c home today with PO Nifedepine and Ibuprofen. Follow-up @ [facility] this week for BP check. 07/12/17 14:02 07/14/17 14:59 Subjective/ Course: 07/12/17 14:00 Pt is feeling much better today after delivery. She has mild cramping and min lochia. She denies CUMMINS, scotomata or RUQ pain. She is less tired and overall feels good. 07/13/17 11:04 Pt seen and examined. Doing well with no complaints. Denies any pain or cramping. Mod lochia. Denies any HAs, visual changes or RUQ pain. Denies any f/c /n/v. She is concerned with her BPs. Voiding without difficulty and passing flatus. 07/14/17 14:55 Pt is feeling much better today. She has min cramping and lochia. She denies CUMMINS, scotomata, abdominal pain. She feels good about her choice of adoption for this baby and she feels supported by friends and family. Objective: 07/14/17 06:00 07/14/17 06:00 Patient ABO/Rh O NEGATIVE 07/10/17 11:57 Uric Acid 7.1 mg/dL (2.5-6.8) H 07/14/17 06:00 Total Bilirubin < 0.1 mg/dL (0.1-1.4) L 07/13/17 06:10 Conjugated Bilirubin 0.1 mg/dL (0.0-0.5) 07/13/17 06:10 Unconjugated Bilirubin 0.0 mg/dL (0.0-1.1) 07/13/17 06:10 AST 42 IU/L (14-46) 07/14/17 06:00 ALT 39 IU/L (9-52) 07/14/17 06:00 Lactate Dehydrogenase 706 IU/L (313-618) H 07/14/17 06:00 Temp Pulse Resp BP Pulse Ox 36.8 C 92 16 156/96 H 95 07/14/17 13:30 07/14/17 13:30 07/14/17 13:30 07/14/17 13:30 07/14/17 13:30 Uterine Position/Fundal Height: Umbilicus -2 Uterine Tone: Firm Physical Exam - Physical Exam General Appearance: WD/WN, alert, no apparent distress Neck: non-tender, full range of motion, supple Respiratory: chest non-tender, lungs clear, normal breath sounds Cardiac/Chest: regular rate, rhythm Abdomen: normal bowel sounds Extremities: swelling (no), Rusty's sign (neg)
--- NOTE | 2017-07-14 15:01 | OBGCSDC ---
General Delivery Information - General Info : 1 Para: 1 Abortions: 0 Type: Vaginal L&D Analgesia/Anesthesia Type: Epidural Admission Date: 07/10/17 Labs: Patient ABO/Rh O NEGATIVE 07/10/17 11:57 Hct 30.1 % (38.0-47.0) L 07/14/17 06:00 Hep Bs Antigen NEGATIVE (NEGATIVE) 07/10/17 11:57 - Hospital Course Intrapartum: 07/11/17 0820: pt doing well, she denies any pain. She is laying in bed. States she is feeling tired, more than yesterday, but overall ok. She denies any CUMMINS, visual changes, epigastric pain. She denies any CP, SOB. 07/11/17 1335: pt doing well, she is agreeable to AROM. She denies any pain or LOF. She reports feeling ok- still tired. She denies any CUMMINS, visual changes, epigastric pain. She denies any CP, SOB. : 07/12/17 14:00 Pt is feeling much better today after delivery. She has mild cramping and min lochia. She denies CUMMINS, scotomata or RUQ pain. She is less tired and overall feels good. 07/13/17 11:04 Pt seen and examined. Doing well with no complaints. Denies any pain or cramping. Mod lochia. Denies any HAs, visual changes or RUQ pain. Denies any f/c /n/v. She is concerned with her BPs. Voiding without difficulty and passing flatus. 07/14/17 14:55 Pt is feeling much better today. She has min cramping and lochia. She denies CUMMINS, scotomata, abdominal pain. She feels good about her choice of adoption for this baby and she feels supported by friends and family. Vaginal - Delivery Provider Delivery Physician/CNM: Bobbi Asher - Diagnosis Labor: Induced Rupture of Membranes Type: Artificial Amniotic Fluid Color: Clear Laceration: 1st Degree Repair: 3-0, Vicryl - Procedures Non-surgical Procedures: Amniotomy, FSE - Delivery Non-surgical Procedures: Amniotomy, FSE Data HUMBERTO: 08/01/17 Gestational Age: 37 week(s) and 3 day(s) López Delivery Date: 07/11/17 Delivery Time: 20:49 Sex of : Male [place] Weight (gm): 3140 g Score (1 Min): 9 Score (5 Min): 10 Discharge Information - Discharge Information Prescriptions: Ibuprofen [Motrin (*)] 600 mg PO Q6HRS PRN #30 tab PRN Reason: post , inflammation Iron Polysacch/Iron Heme Polyp [Bifera] 28 mg PO BID #60 tab NIFEdipine [Procardia 10 mg (*)] 30 mg PO DAILY #30 cap Condition: Good Instruction/Follow Up: Four Weeks, Six Weeks
--- NOTE | 2017-07-14 18:02 | ASMTCMCOM ---
CM Note CM Note Notes: DC'd today. Lavonne from [facility] came with [place] who willl provide cradle care for until adoptive family chosen. MOC signed paperwork, copies of which are in chart. MOC also DC'd today. Date Signed: 07/14/2017 05:29 PM Electronically Signed By:Katty Garcia LCSW
== END 2017-07-14 17:16 | disposition home or self-care (01) | DRG 775 ==
LOC: FLD 11:42 → OBSVTOIN 11:42 → FOB 07-13
PROVIDERS: ADMIT Obstetrics & Gynecology; ATTEND Obstetrics & Gynecology
DX: O14.14 Severe pre-eclampsia complicating childbirth (principal); O70.0 First degree perineal laceration during delivery; O90.81 Anemia of the puerperium; R29.2 Abnormal reflex; Z3A.37 37 weeks gestation of pregnancy; Z37.0 Single live birth
CPT/HCPCS: 80305; 80307; G0480; J0290; J0610; J0702; J2370; J2590; J3010; J3105; J3475